=== PATIENT | female | born 1935 | race Caucasian/White ===

== ENCOUNTER 2023-09-20 14:44 | Emergency (ER) | payer OTHER ==
[~2023-09-20] VITALS: Ht 162.6 cm; Wt 68.0 kg
[2023-09-20] MEDS ORDERED: MORPHINE SULFATE INJ 4 MG/ML DISP.SYRIN ONE (16:24)
[2023-09-20] MEDS ORDERED: MORPHINE SULFATE INJ 2 MG/ML DISP.SYRIN IM ONE (16:30)
[2023-09-20 18:15] VITALS: BP 135/82; TEMP 97.8; O2SAT 96
== END 2023-09-20 18:17 | disposition short-term general hospital (02) ==
LOC: ER 14:48
DX: T84.022A Instability of internal right knee prosthesis, initial encounter (principal); M25.561 Pain in right knee; Z98.890 Other specified postprocedural states
CPT/HCPCS: 99285; 96372; 73552; 73564; J2270